=== PATIENT | male | born 1960 | race Caucasian/White ===

== ENCOUNTER → 2018-06-17 | Outpatient (CLI) | payer MEDICARE, MEDICAID ==
--- NOTE | 2018-06-17 12:14 | Diagnostic Imaging Report ---
INDICATION: Chest pain and shortness of breath. PA and lateral chest obtained at 1149 hours a.m. Heart is normal in size. Mediastinal silhouette is unremarkable. There is COPD change with hyperinflation. There is linear scarring in the right mid lung. There is no consolidation or pneumothorax or pleural fluid. IMPRESSION: COPD changes. Parenchymal scarring in right midlung. No focal consolidation or pleural fluid or pneumothorax. Dictated by: Dictated on workstation # [id number]
== END ==
LOC: RAD FS 11:45
PROVIDERS: ATTEND Nurse Practitioner Family
DX: J44.9 Chronic obstructive pulmonary disease, unspecified (principal); Z87.01 Personal history of pneumonia (recurrent)
CPT/HCPCS: 71046

== ENCOUNTER → 2019-04-19 | Outpatient (CLI) | payer MEDICARE, MEDICAID ==
--- NOTE | 2019-04-19 18:38 | Diagnostic Imaging Report ---
EXAMINATION: CHEST (PA AND LATERAL) CLINICAL INDICATION: 59-year-old male, cough. COMPARISON: June 17, 2018. FINDINGS: There are predominantly linear opacities in the right midlung which may relate to scarring and/or subsegmental atelectasis. Heart size and mediastinal contours are unchanged. There is no identified pneumothorax. There is no pleural effusion. There is tenting of the left hemidiaphragm likely relating to atelectasis. There is no additional identified area of focal airspace consolidation. IMPRESSION: 1. No current acute cardiopulmonary abnormality. 2. Linear opacities in the right midline and tenting of the left hemidiaphragm likely relating to scarring and/or atelectasis. Dictated by: Dictated on workstation # [id number]
== END ==
LOC: RAD FS 13:05
PROVIDERS: ATTEND Emergency Medicine
DX: R05 Cough (principal)
CPT/HCPCS: 71046

== ENCOUNTER 2021-05-29 16:15 | Emergency (ER) | payer MEDICARE, MEDICAID ==
[~2021-05-29] VITALS: Ht 172 cm; Wt 76.0 kg
[2021-05-29 16:44] LABS: BASOPHILS # (AUTO) 0.1 10^3/uL (0.0-0.1); BASOPHILS % (AUTO) 1 % (0-10); EOSINOPHILS # (AUTO) 0.1 10^3/uL (0.0-0.3); EOSINOPHILS % (AUTO) 1 % (0-10); HEMATOCRIT 38 % (40-54); HEMOGLOBIN 13.4 g/dL (13.3-17.7); LYMPHOCYTES # (AUTO) 1.3 10^3/uL (1.0-4.0); LYMPHOCYTES % (AUTO) 16 % (12-44); MEAN CORPUSCULAR HEMOGLOBIN 30 pg (25-34); MEAN CORPUSCULAR HGB CONC 36 g/dL (32-36); MEAN CORPUSCULAR VOLUME 85 fL (80-99); MONOCYTES # (AUTO) 0.9 10^3/uL (0.0-1.0); MONOCYTES % (AUTO) 11 % (0-12); NEUTROPHILS # (AUTO) 5.9 10^3/uL (1.8-7.8); NEUTROPHILS % (AUTO) 72 % (42-75); PLATELET COUNT 259 10^3/uL (130-400); WHITE BLOOD COUNT 8.2 10^3/uL (4.3-11.0)
[2021-05-29 16:54] LABS: PROTHROMBIN TIME PATIENT 13.6 SEC (12.2-14.7)
--- NOTE | 2021-05-29 16:55 | ED General ---
General Chief Complaint: General Problems/Pain Stated Complaint: PAIN IN BOTH ARMS,JAW LOCKING,SHAKING Nursing Triage Note: ARRIVED VIA AMB FROM THE CLINIC. PT COMPLAINS OF WAKING UP WITH RIGHT AND LEFT ARM PAIN AND NUMBESS, SHAKING BAD AT TIMES, HEADACHE THAT HE NO LONGGER HAS, AND FEELS LIKE HIS JAW IS LOCKING UP. Source of Information: Patient History of Present Illness Date Seen by Provider: May 29, 2021 Time Seen by Provider: 16:18 Initial Comments 61-year-old male presenting with complaints of over 2 weeks of arm pain and numbness that is intermittent. He reports that he would be laying on his side and his arm will go numb and be painful. If he rolls to his other side the arm becomes that way. He had a severe headache last night. He feels that he is shaking at times and like his jaws locking up. He denies any chest pain or abdominal pain. He is not currently having any arm or head pain. He denies any head trauma. He states he is "deteriorating" and that his joints and tissues are dissolving. He had gone to the clinic today and they sent him to the emergency department stating he had been having stroke-like symptoms for over 2 weeks. Timing/Duration: Other (Intermittent over the last 2 weeks) Severity: Moderate Associated Systoms: No Chest Pain, No Cough, No Diaphoresis, No Fever/Chills; Headaches (Severe headache last night); No Loss of Appetite, No Malaise, No Nausea/Vomiting, No Rash, No Seizure, No Shortness of Air, No Syncope, No Weakness Allergies and Home Medications Allergies Coded Allergies: No Known Drug Allergies (Unverified , 05/29/21) Patient Home Medication List Home Medication List Reviewed: Yes Review of Systems Review of Systems Constitutional: No chills, No fever EENTM: no symptoms reported Respiratory: No cough, No short of breath Cardiovascular: No chest pain Gastrointestinal: No nausea, No vomiting Genitourinary: no symptoms reported Musculoskeletal: see HPI Skin: No rash Psychiatric/Neurological: See HPI Past Pslyuaa-Hrofoo-Huaqwg Hx Patient Social History Smoking Status: Former Smoker Substance use?: Yes Substance type: Marijuana Alcohol Use?: Yes Alcohol type: Beer Alcohol Frequency: Daily Immunizations Up To Date COVID19 Vaccine Group Super[employer]: [employer] Past Medical History Surgery/Hospitalization HX: Hypertension, alcoholism, GERD Physical Exam Vital Signs Vital Signs - First Documented 05/29/21 16:20 Temp 36.3 Pulse 116 Resp 16 B/P (MAP) 168/99 (122) Pulse Ox 94 O2 Delivery Room Air Capillary Refill : Less Than 3 Seconds Height, Weight, BMI Height: '" Weight: lbs. oz. kg; 25.00 BMI Method: General Appearance: Anxious HEENT: PERRL/EOMI, Pharynx Normal Neck: Full Range of Motion, Normal Inspection, Non Tender, Supple Respiratory: Chest Non Tender, Lungs Clear, Normal Breath Sounds, No Accessory Muscle Use, No Respiratory Distress Cardiovascular: Normal Peripheral Pulses, Tachycardia Gastrointestinal: Normal Bowel Sounds, No Pulsatile Mass, Non Tender, Soft Rectal: Deferred Back: No CVA Tenderness Extremity: Normal Capillary Refill, Normal Inspection, Normal Range of Motion, No Pedal Edema Neurologic/Psychiatric: Alert, Oriented x3, No Motor/Sensory Deficits, Normal Mood/Affect, 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 Skin: Normal Color, Warm/Dry Progress/Results/Core Measures Suspected Sepsis SIRS Temperature: Pulse: 116 Respiratory Rate: 16 Laboratory Tests 05/29/21 16:30: White Blood Count 8.2 Blood Pressure 168 /99 Mean: 122 Laboratory Tests 05/29/21 16:30: Creatinine 1.35H, INR Comment 1.0, Platelet Count 259, Total Bilirubin 0.4 Results/Orders Lab Results Laboratory Tests Test 05/29/21 16:30 05/29/21 17:56 Range/Units White Blood Count 8.2 4.3-11.0 10^3/uL Red Blood Count 4.45 4.30-5.52 10^6/uL Hemoglobin 13.4 13.3-17.7 g/dL Hematocrit 38 L 40-54 % Mean Corpuscular Volume 85 80-99 fL Mean Corpuscular Hemoglobin 30 25-34 pg Mean Corpuscular Hemoglobin Concent 36 32-36 g/dL Red Cell Distribution Width 13.1 10.0-14.5 % Platelet Count 259 130-400 10^3/uL Mean Platelet Volume 9.0 9.0-12.2 fL Immature Granulocyte % (Auto) 0 % Neutrophils (%) (Auto) 72 42-75 % Lymphocytes (%) (Auto) 16 12-44 % Monocytes (%) (Auto) 11 0-12 % Eosinophils (%) (Auto) 1 0-10 % Basophils (%) (Auto) 1 0-10 % Neutrophils # (Auto) 5.9 1.8-7.8 10^3/uL Lymphocytes # (Auto) 1.3 1.0-4.0 10^3/uL Monocytes # (Auto) 0.9 0.0-1.0 10^3/uL Eosinophils # (Auto) 0.1 0.0-0.3 10^3/uL Basophils # (Auto) 0.1 0.0-0.1 10^3/uL Immature Granulocyte # (Auto) 0.0 0.0-0.1 10^3/uL Prothrombin Time 13.6 12.2-14.7 SEC INR Comment 1.0 0.8-1.4 Activated Partial Thromboplast Time 26 24-35 SEC Sodium Level 132 L 135-145 MMOL/L Potassium Level 3.8 3.6-5.0 MMOL/L Chloride Level 92 L 98-107 MMOL/L Carbon Dioxide Level 25 21-32 MMOL/L Anion Gap 15 H 5-14 MMOL/L Blood Urea Nitrogen 14 7-18 MG/DL Creatinine 1.35 H 0.60-1.30 MG/DL Estimat Glomerular Filtration Rate 60 BUN/Creatinine Ratio 10 Glucose Level 108 H 70-105 MG/DL Calcium Level 9.8 8.5-10.1 MG/DL Corrected Calcium 8.5-10.1 MG/DL Magnesium Level 2.2 1.6-2.4 MG/DL Total Bilirubin 0.4 0.1-1.0 MG/DL Aspartate Amino Transf (AST/SGOT) 81 H 5-34 U/L Alanine Aminotransferase (ALT/SGPT) 93 H 0-55 U/L Alkaline Phosphatase 130 40-136 U/L Myoglobin 46.6 10.0-92.0 NG/ML Troponin I < 0.30 <0.30 NG/ML Pro-B-Type Natriuretic Peptide 32.5 <75.0 PG/ML Total Protein 7.8 6.4-8.2 GM/DL Albumin 4.9 H 3.2-4.5 GM/DL Lipase 67 8-78 U/L Serum Alcohol < 10 <10 MG/DL Urine Color PALE YELLOW Urine Clarity CLEAR Urine pH 7.0 5-9 Urine Specific [place] <=1.005 1.016-1.022 Urine Protein NEGATIVE NEGATIVE Urine Glucose (UA) NEGATIVE NEGATIVE Urine Ketones NEGATIVE NEGATIVE Urine Nitrite NEGATIVE NEGATIVE Urine Bilirubin NEGATIVE NEGATIVE Urine Urobilinogen 0.2 < = 1.0 MG/DL Urine Leukocyte Esterase NEGATIVE NEGATIVE Urine RBC (Auto) NEGATIVE NEGATIVE Urine RBC RARE /HPF Urine WBC RARE /HPF Urine Squamous Epithelial Cells RARE /HPF Urine Crystals NONE /LPF Urine Bacteria NEGATIVE /HPF Urine Casts NONE /LPF Urine Mucus NEGATIVE /LPF Urine Culture Indicated NO Urine Opiates Screen NEGATIVE NEGATIVE Urine Oxycodone Screen NEGATIVE NEGATIVE Urine Methadone Screen NEGATIVE NEGATIVE Urine Propoxyphene Screen NEGATIVE NEGATIVE Urine Barbiturates Screen NEGATIVE NEGATIVE Ur Tricyclic Antidepressants Screen NEGATIVE NEGATIVE Urine Phencyclidine Screen NEGATIVE NEGATIVE Urine Amphetamines Screen NEGATIVE NEGATIVE Urine Methamphetamines Screen NEGATIVE NEGATIVE Urine Benzodiazepines Screen POSITIVE H NEGATIVE Urine Cocaine Screen NEGATIVE NEGATIVE Urine Cannabinoids Screen POSITIVE H NEGATIVE My Orders Orders - CHALO GRAF MD Cbc With Automated Diff (05/29/21 16:26) Magnesium (05/29/21 16:26) Chest 1 View Ap/Pa Only (05/29/21 16:26) Ekg Tracing (05/29/21 16:26) Comprehensive Metabolic Panel (05/29/21 16:26) Myoglobin Serum (05/29/21 16:26) Protime With Inr (05/29/21 16:26) Partial Thromboplastin Time (05/29/21 16:26) O2 (05/29/21 16:26) Monitor-Rhythm Ecg Trace Only (05/29/21 16:26) Ed Iv/Invasive Line Start (05/29/21 16:26) Lipase (05/29/21 16:26) Troponin I Fs (05/29/21 16:26) Probnp Fs (05/29/21 16:26) Ua Culture If Indicated (05/29/21 16:26) Drug Screen Stat (Urine) (05/29/21 16:26) Alcohol (05/29/21 16:26) Ct Head/Cervical Spine Wo (05/29/21 16:26) Ct Chest W (05/29/21 17:38) Iohexol Injection (Omnipaque 350 Mg/Ml 1 (05/29/21 18:00) Received Contrast (Hold Metformin- Contr (05/29/21 18:00) Sodium Chloride Flush (Catheter Flush Sy (05/29/21 18:00) Ns (Ivpb) (Sodium Chloride 0.9% Ivpb Bag (05/29/21 18:00) Ns Iv 1000 Ml (Sodium Chloride 0.9%) (05/29/21 18:02) Medications Given in ED Current Medications Medications Dose Ordered Sig/Katheryn Route Start Time Stop Time Status Last Admin Dose Admin Iohexol 100 ml ONCE ONCE IV 05/29/21 18:00 05/29/21 18:01 DC 05/29/21 18:13 75 ML Sodium Chloride 10 ml NEEDED PRN IV 05/29/21 18:00 05/29/21 18:13 10 ML Sodium Chloride 100 ml ONCE ONCE IV 05/29/21 18:00 05/29/21 18:01 DC 05/29/21 18:13 80 ML Vital Signs/I&O 05/29/21 16:20 Temp 36.3 Pulse 116 Resp 16 B/P (MAP) 168/99 (122) Pulse Ox 94 O2 Delivery Room Air Capillary Refill : Less Than 3 Seconds Blood Pressure Mean: 122 Progress Note #1: Progress Note Obtain electrocardiogram, basic labs, cardiac enzymes, urinalysis, urine drug screen, alcohol level, CT scan of the head and cervical spine, chest x-ray. Progress Note #2: Progress Note Labs show stable CBC and Chemistry shows mild elevation of AST and ALT consistent with his drinking. He has Cr of 1.35 which may benefit from some hydration. Negative alcohol level and coags are normal. the ECG is negative for acute ischemic changes. Just resting in the room his heart rate has improved to the 90s. His cardiac enzymes do not show a heart attack or acute coronary syndrome. CT head and cervical spine negative for stroke, mass, bleeding, fracture. CXR does show left hemidiaphragm elevation which is new from prior imaging. Radiology recommends CT with contrast of chest to check for mediastinal mass or lymphadenopathy. Progress Note #3: Progress Note CT chest with IV contrast is showing scarring and atelectasis but no mass or lymphadenopathy. No acute process to explain his symptoms and the raised hemidiaphragm is likely from scarring and atelectasis. Will have pt continue to work with his primary clinic about his concern for xanax withdrawal. Reassure pt that he has not had signs of stroke, heart attack, cancer, electrolyte imbalance, kidney failure, liver failure. ECG Initial ECG Impression Date: May 29, 2021 Initial ECG Impression Time: 16:27 Initial ECG Rate: 107 Initial ECG Rhythm: S.Tach Initial ECG Comparisson: No Previous ECG Available Comment Sinus tachycardia with a heart rate of 107 bpm. UT interval [address] elevation. Atrial premature complexes. QT interval 314 ms with a QTc interval 419 ms. There is no prior tracing available for comparison. Diagnostic Imaging Diagonstic Imaging: Xray Plain Films/CT/US/NM/MRI: chest Comments [facility] [place] [place] NAME[facility] REC[facility] [id number] PT STATUS: REG ER : 1960 PHYSICIAN: CHALO GRAF MD ADMIT DATE: 05/29/21/ER FS Draft Date of Exam:05/29/21 CHEST 1 VIEW AP/PA ONLY EXAMINATION: Chest, one view. HISTORY: Arm numbness, short of breath. COMPARISON: 04/19/2019. FINDINGS: Left hemidiaphragm is elevated. There is scarring or atelectasis in the right mid zone. No pneumothorax. No pleural effusion. Heart size is normal. IMPRESSION: 1. New elevation of the left hemidiaphragm. Consider chest CT with contrast to evaluate for a mediastinal lesion. Dictated on workstation # [id number] Dict: 05/29/211701 Trans: 05/29/21 170 [id number] Interpreted by: EMD CRAIG MD Electronically signed by: Reviewed: Reviewed by Tn Diagonstic Imaging: CT Plain Films/CT/US/NM/MRI: c-spine, head Comments [facility] [place] [place] NAME: UNRULY RUSSELL [facility] REC#: [id number] PT STATUS: REG ER : 1960 PHYSICIAN: CHALO GRAF MD ADMIT DATE: 05/29/21/ER FS Draft Date of Exam:05/29/21 CT HEAD/CERVICAL SPINE WO PROCEDURE: CT head and CT cervical spine without contrast. TECHNIQUE: Multiple contiguous axial images were obtained through the brain and cervical spine without the use of intravenous contrast. Sagittal and coronal reformations through the cervical spine were then performed. Auto Exposure Controls were utilized during the CT exam to meet ALARA standards for radiation dose reduction. INDICATION: Headache and bilateral arm numbness. No prior studies are available for comparison. CT HEAD: Ventricles and sulci are within normal limits. No sulcal effacement or midline shift is identified. No acute intra-axial or extra-axial hemorrhage is detected. Cisterns are patent. Visualized paranasal sinuses are clear. IMPRESSION: No acute intracranial process is detected. CT cervical spine: Curvature of the cervical spine is normal. There is minimal retrolisthesis C3 on C4. There is multilevel degenerative disc disease with variable disc space narrowing and marginal spurring. No fractures are identified. Prevertebral tissues are within normal limits. Odontoid is intact. IMPRESSION: Cervical spondylosis. No acute bony abnormality is detected. Dictated on workstation # [id number] Dict: 05/29/21 1703 Trans: 05/29/21 1713 ON LICENSE OF [facility] [id number] Interpreted by: TRAVON DEVLIN MD Electronically signed by: Reviewed: Reviewed by Tn Diagonstic Imaging: CT Plain Films/CT/US/NM/MRI: chest Comments NAME: [facility]UL[facility] REC#: [id number] PT STATUS: REG ER : 1960 PHYSICIAN: CHALO GRAF MD ADMIT DATE: 05/29/21/ER FS Draft Date of Exam:05/29/21 CT CHEST W PROCEDURE: CT chest with contrast only. TECHNIQUE: Multiple contiguous axial images were obtained through the chest after administration of intravenous contrast. Auto Exposure Controls were utilized during the CT exam to meet ALARA standards for radiation dose reduction. INDICATION: Bilateral arm numbness as well as elevated left hemidiaphragm. COMPARISON: No prior CT studies available for comparison. FINDINGS: No axillary lymphadenopathy is identified. No mediastinal or hilar lymphadenopathy is seen. There is no pericardial or pleural fluid. Left hemidiaphragm is elevated. There is some scarring in the right middle lobe and right lower lobe. No infiltrates, nodules or masses are seen. Upper abdomen is unremarkable. IMPRESSION: Elevation of the left hemidiaphragm as well as some scarring or atelectasis in the right middle lobe and right lower lobe. The study is otherwise unremarkable. Dictated on workstation # [id number] Dict: 05/29/211820 Trans: 05/29/211825 AS6 [id number] Interpreted by: TRAVON DEVLIN MD Electronically signed by: Reviewed: Reviewed by Me Departure Impression Primary Impression: Paresthesia and pain of both upper extremities Additional Impression: Intermittent headache Disposition: HOME, SELF-CARE Condition: Stable Departure-Patient Inst. Decision time for Depature: 18:45 Referrals: TRUMAN GUEVARA DO (PCP/Family) Primary Care Physician Patient Instructions: Headache, Adult ED, Paresthesia (DC), Muscle and Bone Pain (DC) Add. Discharge Instructions: The tests today do not show a stroke, heart attack, kidney failure, liver failure. The CT scan of chest shows scarring of the lungs but no mass, tumors or lymph nodes enlarged. Continue to work with Dr. Guevara's clinic about your concern for alprazolam (Xanax) withdrawal. All discharge instructions reviewed with patient and/or family. Voiced understanding. CHALO GRAF MD May 29, 2021 16:55
--- NOTE | 2021-05-29 17:04 | Diagnostic Imaging Report ---
EXAMINATION: Chest, one view. HISTORY: Arm numbness, short of breath. COMPARISON: 04/19/2019. FINDINGS: Left hemidiaphragm is elevated. There is scarring or atelectasis in the right mid zone. No pneumothorax. No pleural effusion. Heart size is normal. IMPRESSION: 1. New elevation of the left hemidiaphragm. Consider chest CT with contrast to evaluate for a mediastinal lesion. Dictated by: Dictated on workstation # [id number]
--- NOTE | 2021-05-29 17:13 | Diagnostic Imaging Report ---
PROCEDURE: CT head and CT cervical spine without contrast. TECHNIQUE: Multiple contiguous axial images were obtained through the brain and cervical spine without the use of intravenous contrast. Sagittal and coronal reformations through the cervical spine were then performed. Auto Exposure Controls were utilized during the CT exam to meet ALARA standards for radiation dose reduction. INDICATION: Headache and bilateral arm numbness. No prior studies are available for comparison. CT HEAD: Ventricles and sulci are within normal limits. No sulcal effacement or midline shift is identified. No acute intra-axial or extra-axial hemorrhage is detected. Cisterns are patent. Visualized paranasal sinuses are clear. IMPRESSION: No acute intracranial process is detected. CT cervical spine: Curvature of the cervical spine is normal. There is minimal retrolisthesis C3 on C4. There is multilevel degenerative disc disease with variable disc space narrowing and marginal spurring. No fractures are identified. Prevertebral tissues are within normal limits. Odontoid is intact. IMPRESSION: Cervical spondylosis. No acute bony abnormality is detected. Dictated by: Dictated on workstation # [id number]
[2021-05-29 17:14] LABS: POTASSIUM 3.8 MMOL/L (3.6-5.0); SODIUM 132 MMOL/L (135-145)
[2021-05-29 17:15] LABS: ALANINE AMINOTRANSFERASE 93 U/L (0-55); ALKALINE PHOSPHATASE 130 U/L (40-136); BILIRUBIN,TOTAL 0.4 MG/DL (0.1-1.0); BUN/CREATININE RATIO 10; CALCIUM 9.8 MG/DL (8.5-10.1); CARBON DIOXIDE 25 MMOL/L (21-32); CHLORIDE 92 MMOL/L (98-107); CREATININE SERUM 1.35 MG/DL (0.60-1.30); GFR ESTIMATED 60; GLUCOSE 108 MG/DL (70-105); MAGNESIUM 2.2 MG/DL (1.6-2.4); TOTAL PROTEIN 7.8 GM/DL (6.4-8.2)
[2021-05-29 17:16] LABS: ALBUMIN 4.9 GM/DL (3.2-4.5); LIPASE 67 U/L (8-78)
[2021-05-29] MEDS ORDERED: CATHETER FLUSH 10 ML SYR IV PRN (18:00)
[2021-05-29] MEDS ORDERED: HOLD METFORMIN - RECEIVED CONTRAST 20 ML VIAL IV SCH (18:00)
[2021-05-29] MEDS ORDERED: NS 100 ML (IVPB) BAG IV ONE (18:00)
[2021-05-29] MEDS ORDERED: IOHEXOL 350 MG/ML 100 ML (OMNIPAQUE 350) VIAL IV ONE (18:00)
[2021-05-29] MEDS ORDERED: NS IV 1000 ML 1,000 ML IV STA (18:02)
[2021-05-29 18:05] LABS: BILIRUBIN,URINE NEGATIVE (NEGATIVE); CLARITY,URINE CLEAR; GLUCOSE, URINE (UA) NEGATIVE (NEGATIVE); KETONES,URINE NEGATIVE (NEGATIVE); LEUKOCYTE ESTERASE ,URINE NEGATIVE (NEGATIVE); NITRITE,URINE NEGATIVE (NEGATIVE); PROTEIN,URINE NEGATIVE (NEGATIVE)
[2021-05-29 18:10] LABS: BACTERIA,URINE NEGATIVE /HPF; COLOR,URINE PALE YELLOW; RBC,URINE RARE /HPF; SQUAMOUS EPITHELIAL CELL,UR RARE /HPF; WBC,URINE RARE /HPF
[2021-05-29 18:15] LABS: AMPHETAMINE SCREEN, URINE NEGATIVE (NEGATIVE); BENZODIAZEPINES SCREEN URINE POSITIVE (NEGATIVE); CANNABINOID SCREEN, URINE POSITIVE (NEGATIVE); COCAINE SCREEN URINE NEGATIVE (NEGATIVE); METHAMPHETAMINE SCREEN URINE S NEGATIVE (NEGATIVE); OPIATE SCREEN URINE NEGATIVE (NEGATIVE)
[2021-05-29 18:16] LABS: BARBITURATE SCREEN URINE NEGATIVE (NEGATIVE); METHADONE STAT NEGATIVE (NEGATIVE); OXYCODONE STAT NEGATIVE (NEGATIVE); PROPOXYPHENE STAT NEGATIVE (NEGATIVE); TRICYCLIC ANTIDEPRESSANTS SCRE NEGATIVE (NEGATIVE)
--- NOTE | 2021-05-29 18:27 | Diagnostic Imaging Report ---
PROCEDURE: CT chest with contrast only. TECHNIQUE: Multiple contiguous axial images were obtained through the chest after administration of intravenous contrast. Auto Exposure Controls were utilized during the CT exam to meet ALARA standards for radiation dose reduction. INDICATION: Bilateral arm numbness as well as elevated left hemidiaphragm. COMPARISON: No prior CT studies available for comparison. FINDINGS: No axillary lymphadenopathy is identified. No mediastinal or hilar lymphadenopathy is seen. There is no pericardial or pleural fluid. Left hemidiaphragm is elevated. There is some scarring in the right middle lobe and right lower lobe. No infiltrates, nodules or masses are seen. Upper abdomen is unremarkable. IMPRESSION: Elevation of the left hemidiaphragm as well as some scarring or atelectasis in the right middle lobe and right lower lobe. The study is otherwise unremarkable. Dictated by: Dictated on workstation # [id number]
[2021-05-29 19:06] VITALS: BP 157/105
== END 2021-05-29 19:06 | disposition home or self-care (01) ==
LOC: EDUNIT# 16:15 → ER FS 16:16
DX: R20.2 Paresthesia of skin (principal); R51.9 Headache, unspecified; R00.0 Tachycardia, unspecified; Z87.891 Personal history of nicotine dependence
CPT/HCPCS: 36415; 70450; 71045; 71260; 72125; 80053; 80306; 81000; 83690; 83735; 83874; 83880; 84484; 85025; 85610; 85730; 93005; 93041; 99284; G0480; 80320; Q9967